=== PATIENT | male | born 1965 | race Caucasian/White ===

== ENCOUNTER → 2016-11-30 | Outpatient (REF) | payer OTHER ==
[~2016-11-30] MED LIST: GLUC850T PO; INSULANT SC; LIPI10TA PO; MOTR200T44 PO; NICO14DI20 TD
== END ==
LOC: M SFHCPLAZ 15:53
PROVIDERS: ATTEND Family Medicine
DX: E11.9 Type 2 diabetes mellitus without complications (principal); Z53.9 Procedure and treatment not carried out, unspecified reason

== ENCOUNTER → 2017-02-22 | Outpatient (REF) | payer OTHER | LOC: M SFHCPLAZ 15:33 | PROVIDERS: ATTEND Family Medicine | DX: E11.9 Type 2 diabetes mellitus without complications (principal); Z53.9 Procedure and treatment not carried out, unspecified reason ==

== ENCOUNTER 2024-03-29 17:36 | Emergency (ER) | payer OTHER, SELFPAY ==
[~2024-03-29 17:36] MED LIST changes: +PENI500T PO; +PERC5TAB12 PO
== END 2024-03-29 17:45 | disposition left against medical advice (07) ==
LOC: M ED 17:36
DX: Z53.21 Procedure and treatment not carried out due to patient leaving prior to being seen by health care provider (principal)

== ENCOUNTER 2025-02-02 16:21 | Emergency (ER) | payer BC, SELFPAY ==
[~2025-02-02] VITALS: Ht 167.6 cm; Wt 83.6 kg
[2025-02-02 17:03] LABS: BASO # 0.1 10^3/uL (0.0-0.2); BASO % 0.7 % (0.0-1.0); EOS # 0.1 10^3/uL (0.0-0.5); EOS % 0.5 % (0.0-3.0); HEMATOCRIT 40.6 % (42.0-52.0); HEMOGLOBIN 13.4 g/dl (13.5-17.5); LYMPH # 1.3 10^3/uL (1.5-5.0); LYMPH % 7.2 % (24.0-44.0); MEAN CORPUSCULAR HEMOGLOBIN 28.8 pg (27.0-33.0); MEAN CORPUSCULAR VOLUME 87.3 fl (80.0-96.0); MONO # 1.2 10^3/uL (0.0-0.8); MONO % 6.4 % (2.0-8.0); NEUTROPHILS # 15.5 10^3/uL (1.5-8.5); PLATELET COUNT, AUTOMATED 485 10^3/uL (150-450); RED BLOOD COUNT 4.65 10^6/uL (4.30-6.10); WHITE BLOOD COUNT 18.7 10^3/uL (4.0-10.0)
[2025-02-02 17:30] LABS: BLOOD UREA NITROGEN 22 MG/DL (9-23); CALCIUM LEVEL 8.6 MG/DL (8.5-10.1); CARBON DIOXIDE LEVEL 21 MMOL/L (20-31); CHLORIDE LEVEL 89 MMOL/L (98-107); CK-MB VALUE MASS < 1.0 NG/ML (<3.6); CREATININE FOR GFR 0.55 MG/DL (0.70-1.30); GLOMERULAR FILTRATION RATE > 90.0 (>56); GLUCOSE, FASTING 318 MG/DL (60-100); POTASSIUM SERUM 5.5 MMOL/L (3.5-5.1); SODIUM LEVEL 128 MMOL/L (136-145)
[2025-02-02 17:34] LABS: D-DIMER QUANT 2.27 ug/mL (<0.5)
[2025-02-02] MEDS ORDERED: ISOVUE-370 76% 100ML VIAL As Ordered ONE (17:36)
[2025-02-02 17:43] LABS: CPK CREATINE PHOSPHOKINASE 73 U/L (46-171); MB/CK RELATIVE INDEX 1.36 (< OR =4)
[2025-02-02] MEDS: NS 500 ML IV ONE (18:00)
[2025-02-02 18:04] LABS: PARTIAL THROMBOPLASTIN TIME 33.3 SECONDS (24.8-34.2)
[2025-02-02 18:14] LABS: CK-MB VALUE MASS < 1.0 NG/ML (<3.6)
[2025-02-02 18:16] LABS: CPK CREATINE PHOSPHOKINASE 69 U/L (46-171); MB/CK RELATIVE INDEX 1.44 (< OR =4)
[2025-02-02] MEDS: HumuLIN R (REGULAR) INSULIN (NovoLIN R) **100U/ML** PER UNIT IV ONE (18:33)
[2025-02-02] MEDS: ASPIRIN 81MG CHEW TABLET PO ONE (18:44)
[2025-02-02 18:45] VITALS: BP 177/77
[2025-02-02] MEDS: NITROGLYCERIN 0.4MG SUBL TABLET SL STA (18:45)
[2025-02-02 19:30] LABS: CK-MB VALUE MASS < 1.0 NG/ML (<3.6)
[2025-02-02 19:31] LABS: CPK CREATINE PHOSPHOKINASE 64 U/L (46-171); MB/CK RELATIVE INDEX 1.56 (< OR =4)
[2025-02-02 19:31] LABS: PROCALCITONIN 0.69 ng/ml
[2025-02-02 19:49] LABS: C REACTIVE PROTEIN QUANTITATIV 35.33 MG/DL (<1.0)
[2025-02-02] MEDS: ACETAMINOPHEN 325 MG TAB PO ONE (20:26)
[2025-02-02] MEDS: VANCOMYCIN HCL 1,750 MG, VIAL MATE ADAPTER 1 EACH in NS 500 ML IV ONE (20:28)
[2025-02-02 20:42] LABS: AMPHETAMINES LEVEL URINE NEGATIVE (NEGATIVE); BARBITURATES URINE NEGATIVE (NEGATIVE); BENZODIAZEPINES URINE NEGATIVE (NEGATIVE)
[2025-02-02 20:43] LABS: CANNABINOIDS URINE NEGATIVE (NEGATIVE); COCAINE METABOLITE URINE NEGATIVE (NEGATIVE); METHADONE URINE NEGATIVE (NEGATIVE); OPIATES URINE NEGATIVE (NEGATIVE); PHENCYCLIDINE URINE NEGATIVE (NEGATIVE)
[2025-02-02 20:46] LABS: BLOOD UREA NITROGEN 20 MG/DL (9-23); CALCIUM LEVEL 7.9 MG/DL (8.5-10.1); CARBON DIOXIDE LEVEL 20 MMOL/L (20-31); CHLORIDE LEVEL 95 MMOL/L (98-107); GLOMERULAR FILTRATION RATE > 90.0 (>56); GLUCOSE, FASTING 227 MG/DL (60-100); POTASSIUM SERUM 4.8 MMOL/L (3.5-5.1); SODIUM LEVEL 130 MMOL/L (136-145)
[2025-02-02] MEDS: MORPHINE 4 MG/ML 1ML VIAL IV PRN (22:19)
[2025-02-02] MEDS ORDERED: MELO15TA28 PO (23:39)
[2025-02-02] MEDS ORDERED: ACET-897 PO (23:39)
[2025-02-02] MEDS ORDERED: HOME MED LIST COMPLETE! XX SCH (23:40)
[2025-02-02 23:45] VITALS: BP 131/61; TEMP 99.2; O2SAT 95
== END 2025-02-03 00:12 | disposition short-term general hospital (02) ==
LOC: M ED 16:21 → EDBD 16:21 → M ED 02-03 00:12
DX: I33.0 Acute and subacute infective endocarditis (principal); R00.0 Tachycardia, unspecified; I45.81 Long QT syndrome; E11.9 Type 2 diabetes mellitus without complications; I10 Essential (primary) hypertension; E78.5 Hyperlipidemia, unspecified; Z79.1 Long term (current) use of non-steroidal anti-inflammatories (NSAID); Z79.899 Other long term (current) drug therapy
CPT/HCPCS: 71045; 71275; 80048; 80307; 82550; 82553; 83605; 84145; 84484; 85025; 85379; 85652; 85730; 86140; 87040; 87077; 87154; 87186; 87486; 87581; 87633; 87798; 93005; 93041; 93306; 93971; 94760; 96361; 96365; 96366; 96375; 99285; J1815; J3371; Q9967

== ENCOUNTER → 2025-04-16 | Outpatient (REF) | payer BC ==
[~2025-04-16] MED LIST changes: +ACET-897 PO; +MELO15TA28 PO
[2025-04-16 13:00] LABS: BASO # 0.0 10^3/uL (0.0-0.2); BASO % 0.5 % (0.0-1.0); EOS # 0.4 10^3/uL (0.0-0.5); EOS % 5.4 % (0.0-3.0); LYMPH # 2.4 10^3/uL (1.5-5.0); LYMPH % 30.3 % (24.0-44.0); MONO # 0.6 10^3/uL (0.0-0.8); MONO % 7.7 % (2.0-8.0); NEUTROPHILS # 4.3 10^3/uL (1.5-8.5); NEUTROPHILS % 55.7 % (36.0-66.0); PLATELET COUNT, AUTOMATED 505 10^3/uL (150-450)
[2025-04-16 13:06] LABS: ERYTHROCYTE SEDIMENTATION RATE 63 mm/hr (0-20)
[2025-04-16 13:26] LABS: ALT/SGPT < 9 U/L (7.0-40); AST/SGOT 14 U/L (<34); C REACTIVE PROTEIN QUANTITATIV 1.89 MG/DL (<1.0); CALCIUM LEVEL 9.8 MG/DL (8.5-10.1); CARBON DIOXIDE LEVEL 24 MMOL/L (20-31); CHLORIDE LEVEL 100 MMOL/L (98-107); CREATININE FOR GFR 0.68 MG/DL (0.70-1.30); GLOMERULAR FILTRATION RATE > 90.0 (>56); POTASSIUM SERUM 5.2 MMOL/L (3.5-5.1); SODIUM LEVEL 139 MMOL/L (136-145)
== END ==
LOC: M LAB REF 11:54
PROVIDERS: ATTEND Internal Medicine
DX: M60.009 Infective myositis, unspecified site (principal); A49.01 Methicillin susceptible Staphylococcus aureus infection, unspecified site; Z79.2 Long term (current) use of antibiotics

== ENCOUNTER → 2025-06-11 | Outpatient (REF) | payer BC ==
[2025-06-11 17:47] LABS: BASO # 0.0 10^3/uL (0.0-0.2); BASO % 0.5 % (0.0-1.0); EOS # 0.2 10^3/uL (0.0-0.5); EOS % 3.2 % (0.0-3.0); LYMPH # 2.1 10^3/uL (1.5-5.0); LYMPH % 28.3 % (24.0-44.0); MONO # 0.7 10^3/uL (0.0-0.8); MONO % 8.8 % (2.0-8.0); NEUTROPHILS # 4.4 10^3/uL (1.5-8.5); NEUTROPHILS % 58.9 % (36.0-66.0); PLATELET COUNT, AUTOMATED 324 10^3/uL (150-450)
[2025-06-11 17:49] LABS: PSA SCREENING 0.39 NG/ML (< 4.00)
[2025-06-11 17:51] LABS: CALCIUM LEVEL 9.7 MG/DL (8.5-10.1); CARBON DIOXIDE LEVEL 28 MMOL/L (20-31); CHLORIDE LEVEL 103 MMOL/L (98-107); CREATININE FOR GFR 0.90 MG/DL (0.70-1.30); GLOMERULAR FILTRATION RATE > 90.0 (>56); POTASSIUM SERUM 4.6 MMOL/L (3.5-5.1); SODIUM LEVEL 141 MMOL/L (136-145)
[2025-06-11 18:17] LABS: ESTIMATED AVERAGE GLUCOSE 174.0 MG/DL (60-110)
== END ==
LOC: M SFHCLERA 09:18
PROVIDERS: ATTEND Internal Medicine
DX: Z00.01 Encounter for general adult medical examination with abnormal findings (principal); E11.65 Type 2 diabetes mellitus with hyperglycemia; I10 Essential (primary) hypertension
CPT/HCPCS: 80048; 83036; 85025; G0103

== ENCOUNTER 2025-09-24 06:34 | Emergency (ER) | payer BC ==
[~2025-09-24] VITALS: Ht 167.6 cm; Wt 97.9 kg
[2025-09-24 12:09] VITALS: BP 220/118; TEMP 98.6; O2SAT 97
[2025-09-24] MEDS ORDERED: METH-1164 PO (12:22)
== END 2025-09-24 12:34 | disposition left against medical advice (07) ==
LOC: M ED 10:27
DX: S43.122A Dislocation of left acromioclavicular joint, 100%-200% displacement, initial encounter (principal); Y92.9 Unspecified place or not applicable; Y93.9 Activity, unspecified; Y99.9 Unspecified external cause status; W19.XXXA Unspecified fall, initial encounter; E11.9 Type 2 diabetes mellitus without complications; I10 Essential (primary) hypertension; F10.10 Alcohol abuse, uncomplicated; Z79.1 Long term (current) use of non-steroidal anti-inflammatories (NSAID); Z79.899 Other long term (current) drug therapy; Z53.9 Procedure and treatment not carried out, unspecified reason